=== PATIENT | female | born 1960 | race Caucasian/White ===

== ENCOUNTER 2019-02-25 07:29 | Outpatient (CLI) | payer OTHER ==
[2019-02-25] MEDS ORDERED: Iopamidol 370 76% 100 ML VIAL ONE (09:00)
--- NOTE | 2019-02-25 12:09 | CT ---
EXAM: CT Abdomen W WO Con DATE: 02/25/2019 12:00 AM INDICATION: Left adrenal lesion found on MR of the lumbar spine dated March 08, 2017 COMPARISON: MR the lumbar spine with and without contrast dated March 18, 2017 FINDING: There is a 1.9 cm hypodense, partially calcified nodule involving the lateral limb of the l eft adrenal gland. This is slightly smaller than seen on the comparison MR examination dated 03/08/2017. The lesion is seen on the comparison CT the lumbar spine from [facility] 07/14/2015 and is also smaller to this comparison study. The lesion demonstrates on precontrast images a [place] internal characteristics outside of the calcification of 7.75. The lesion does mi ldly enhance. There is a 9 mm adrenal adenoma involving the right adrenal body. There are mild vascular calcifications involving the abdominal aorta. No enlarged lymph nodes are evident. Lung bases are clear. There is scattered degenerative and osteoa rthritic change present. IMPRESSION:The lesion within the left adrenal gland is consistent with a benign left adrenal adenoma. This lesion is slightly smaller than seen on the comparison CT of the lumbar spine dated July 14, 2015. There are small calcifications within the left adrenal adenoma likely dystrophic in nature. There is a small right adrenal adenoma incidentally noted measuring 9 mm.
== END 2019-02-25 07:30 | disposition home or self-care (01) ==
LOC: SCSCT 07:29
PROVIDERS: ATTEND Family Medicine
DX: D35.02 Benign neoplasm of left adrenal gland (principal)
CPT/HCPCS: 74170; Q9967

== ENCOUNTER 2019-03-27 07:09 | Day surgery (SDC) | payer OTHER ==
[2019-03-26 17:15] VITALS: BMI 47.5
[2019-03-27] MEDS ORDERED: Midazolam HCl 2 mg/2 ml Vial ONE (09:05)
[2019-03-27] MEDS ORDERED: Ketamine 50 MG/ML (10ML VIAL) ONE (09:11)
--- NOTE | 2019-03-27 12:36 | OP ---
DATE OF PROCEDURE: 03/27/2019 PREOPERATIVE DIAGNOSES: 1. Nausea and weight loss. 2. Intermittent diarrhea. 3. Family history of colorectal cancer in her brother. POSTOPERATIVE DIAGNOSES: 1. Esophagogastroduodenoscopy notable for normal esophagus. Mild antral gastritis with erosion, biopsied. 2. Normal duodenum in third portion. Biopsies taken to rule out celiac. 3. Colonoscopy, tortuous, difficult exam. Ileocecal valve was seen. Cecal pull was not reached despite 1 hour procedure. 4. A 5 mm polyp, hepatic flexure, removed by snare polypectomy, submitted to pathology. No other lesion seen. RECOMMENDATIONS: 1. Prilosec 40 mg p.o. q.a.m. 2. Citrucel Fiber daily. 3. Repeat colonoscopy in 1 year. 4. Follow up in my office in 2 weeks. PROCEDURE IN DETAIL: The patient was informed of the risks, benefits, and possible complications of endoscopy including perforation, reaction to medication, aspiration, and informed consent was obtained. The patient was brought to the endoscopy suite, where she was sedated in gradual fashion. The endoscope was advanced through the bite block, which was inside the orifice. The endoscope was advanced through the esophagus, stomach, and the second and third portions of the duodenum. The esophagus was normal. The stomach was notable for mild antral nodular gastritis with a small erosion versus pancreatic rest. Biopsies were obtained and submitted to Pathology. The retroflexed views in the stomach were normal with no evidence of ulcers, erosions, or other gastritis. The GE junction was normal from above and below. The scope was moved into the duodenum and second and third portions with no overt lesion seen. There was mild duodenitis in the bulb. There were no other lesions. There was no evidence of celiac, but random biopsies were obtained with regard to her chronic diarrhea. The scope was removed. The patient tolerated the procedure well. She was returned to the room and rectal examination was performed, which was normal. The endoscope was advanced to the colon. The exam was very tortuous. Her body habitus made it very difficult to get pressure and mobilize from the bed for movement to try to reach the cecum. After an hour, we were still unable to reach the cecal polyp, but we were able to see the cusp of the appendiceal orifice just beyond the ileocecal valve, but not seen completely behind it. The prep was good. One polyp was seen at the hepatic flexure, 5 mm, removed by cold snare polypectomy. The scope was then slowly removed with visualization of the colon as best as we could. Otherwise, retroflexed views in the rectum were normal. There was no evidence of colitis. There were no other masses or lesions. No other polyps were seen. The scope was removed. The patient tolerated procedure well. There were no complications. Job ID: [id number]
[2019-03-27] MEDS ORDERED: PROPOFOL 200 MG/20 ML VIAL ONE (14:17)
== END 2019-03-27 11:48 | disposition home or self-care (01) ==
LOC: SDC 07:09
PROVIDERS: ATTEND Internal Medicine Gastroenterology
PROC: 0DBL8ZX Excision of Transverse Colon, Via Natural or Artificial Opening Endoscopic, Diagnostic (ICD-10-PCS; principal; 2019-03-27)
PROC: 0DB78ZX Excision of Stomach, Pylorus, Via Natural or Artificial Opening Endoscopic, Diagnostic (ICD-10-PCS; principal; 2019-03-27)
DX: D12.3 Benign neoplasm of transverse colon (principal); K29.50 Unspecified chronic gastritis without bleeding; B96.81 Helicobacter pylori [H. pylori] as the cause of diseases classified elsewhere; Q43.8 Other specified congenital malformations of intestine; J45.909 Unspecified asthma, uncomplicated; F32.9 Major depressive disorder, single episode, unspecified; K58.0 Irritable bowel syndrome with diarrhea; Z80.0 Family history of malignant neoplasm of digestive organs; Z88.6 Allergy status to analgesic agent; Z87.891 Personal history of nicotine dependence; Z88.5 Allergy status to narcotic agent; Z79.899 Other long term (current) drug therapy
CPT/HCPCS: 88305; 88312; J2250; J2704

== ENCOUNTER 2019-06-05 10:53 | Outpatient (CLI) | payer OTHER ==
--- NOTE | 2019-06-05 13:29 | RAD ---
XR Lumbar Spine 2 Or 3 View History: Back pain Comparison: MRI 2017 Findings: Exam is limited due to motion. No definite acute fracture or malalignment. 2 mm L4 over L5 retrolisthesis without significant translation with flexion or extension. Low-grade posterior L5/S1 disc space narrowing. Surgical disc hardware at L4/L5. Impression: Mild degenerative changes. No significant translation with flexion or extension.
== END 2019-06-05 10:54 | disposition home or self-care (01) ==
LOC: SCSRAD 10:53
PROVIDERS: ATTEND Nurse Practitioner Family
DX: M47.26 Other spondylosis with radiculopathy, lumbar region (principal)
CPT/HCPCS: 72100

== ENCOUNTER 2019-07-17 15:24 | Outpatient (CLI) | payer OTHER ==
--- NOTE | 2019-07-17 16:18 | MRI ---
MRI lumbar spine noncontrast HISTORY: Low back pain with right leg radiculopathy. FINDINGS: Vertebral body heights and alignment are maintained. Mild posterior disc bulge is apparent at the T11-12 level without significant compromise of the central canal or neural foramina. Conus medullaris has normal appearance. There is desiccation of the intervertebral discs at the L2-3, L3-4, and L4-5 levels. T12-L1, L1-2, L2-3, L3-4: Osteophytosis of the facets. Central canal and neural foramina are patent. L4-5: Disc space narrowing and minimal degenerative retrolisthesis. Discogenic endplate changes withi n the bone marrow or most pronounced at this level. There is osteophytosis of the facets. Central canal is patent. Mild stenosis of each neural foramen. L5-S1: Bone marrow signal abnormality from prior pedicle screws evident. There is far left lateral pr otrusion of the intervertebral disc that approaches the right nerve root within the lateral aspect of the neural foramen. Large amount of fat is present posteriorly, however, giving a large cushion fo r the nerve root. There is osteophytosis of the facets. Mild stenosis of the right neural foramen. IMPRESSION: Far right lateral disc protrusion at the lumbosacral junction, encroaching upon the right L5 nerve root but not significantly compressing it due to the surrounding cushion of fat. Otherwise mild degenerative changes and postoperative changes of the lumbar spine.
== END 2019-07-17 15:25 | disposition home or self-care (01) ==
LOC: TBSIIMAG 15:24
PROVIDERS: ATTEND Nurse Practitioner Family
DX: M47.26 Other spondylosis with radiculopathy, lumbar region (principal); M51.27 Other intervertebral disc displacement, lumbosacral region; Z98.890 Other specified postprocedural states
CPT/HCPCS: 72148

== ENCOUNTER 2020-09-15 13:36 | Outpatient (CLI) | payer OTHER ==
[2020-09-15] MEDS ORDERED: Magnevist 469MG/ML 20 ML VIAL ONE (14:49)
--- NOTE | 2020-09-15 15:06 | RAD ---
XR Lumbar Spine 2 Or 3 View History: Lumbar radiculopathy Comparison: MRI same day Findings: Prior discectomy change at L4/L5. No significant listhesis. No abnormal translation with fl exion or extension. No acute fracture or malalignment. Impression: No significant translation with flexion or extension.
--- NOTE | 2020-09-15 15:25 | MRI ---
MRI lumbar spine with and without IV contrast INDICATIONS: Lumbar radiculopathy COMPARISON:MRI lumbar spine dated 07/17/2019 FINDINGS: Lumbar vertebral maintain height and alignment. Degenerative spurring from the lumbar vertebra. Degen erative endplate changes, prominent at L4-5 and L2-3, stable from prior exam Signal changes within the L2-3 disc and the L4-5 disc consistent with postoperative change. Loss of d isc space at both of these levels. T12-L1:No significant disc bulge or protrusion. No central canal or foraminal stenosis. L1-2:No significant disc bulge or protrusion. No central canal or foraminal stenosis. L2-3:Postoperative changes. No evidence of significant residual central disc. Disc osteophyte complex projects paracentrally on the left and laterally on the left appear to contact the exiting left L2 nerve root. No significant central canal stenosis L3-4:No significant disc bulge or protrusion. Facet hypertrophy. No significant central canal or fora juaquin stenosis. L4-5:Interbody disc implant. Prominent facet hypertrophy. No central disc bulge or protrusion. Mild c entral canal stenosis. Foraminal encroachment on both sides due to hypertrophic change. L5-S1:No significant disc bulge or protrusion. No central canal or foraminal stenosis. No soft tissue abnormality identified. IMPRESSION: 1.Postoperative and degenerative changes at the L2-3 and L4-5 disc spaces. Left foraminal encroachmen t at L4-3 as described. Bilateral foraminal encroachment at L4-5.
== END 2020-09-15 13:37 | disposition home or self-care (01) ==
LOC: TBSIIMAG 13:36
PROVIDERS: ATTEND Neurological Surgery
DX: M47.26 Other spondylosis with radiculopathy, lumbar region (principal); Z98.890 Other specified postprocedural states
CPT/HCPCS: 72100; 72158; 82565; A9579

== ENCOUNTER 2021-01-05 09:42 | Outpatient (CLI) | payer OTHER | END 2021-01-05 09:43 | disposition home or self-care (01) | LOC: DTY/OP 09:42 | PROVIDERS: ATTEND Surgery | DX: E66.01 Morbid (severe) obesity due to excess calories (principal) | CPT/HCPCS: 97802 ==

== ENCOUNTER 2021-03-24 09:22 | Outpatient (CLI) | payer OTHER ==
[2021-03-24 10:19] LABS: #Basophils 0.1 10x3/uL (0.0-0.2); #Eosinphils 0.4 10x3/uL (0.0-0.5); #Monocytes 0.7 10x3/uL (0.0-1.1); #Neutrophils 4.8 10x3/uL (1.5-8.4); %Basophils 0.7 % (0.0-2.0); %Eosinophils 4.7 % (0.0-6.0); %Lymphocytes 30.8 % (18.0-47.0); %Monocytes 7.7 % (0.0-10.0); %Neutrophils 55.8 % (40.0-75.0); Hemoglobin 15.4 g/dL (12.0-15.5); Mean Corpuscular HGB CONC 33.1 g/dL (32.0-36.0); Mean Corpuscular Hemoglobin 28.5 pg (27.0-33.0); Platelet Count 258 10x3/uL (150-450); RBC Distribution Width 13.2 % (11.5-14.5); Red Blood Cell (RBC) Count 5.41 10x6/uL (3.90-5.03); White Blood Cell (WBC) Count 8.6 10x3/uL (3.5-10.5)
[2021-03-24 10:39] LABS: ALT (SGPT) 47 U/L (8-55); AST (SGOT) 41 U/L (5-34); Albumin 4.2 g/dL (3.4-4.8); Alkaline Phosphatase 51 U/L (40-110); Anion Gap 14 mmol/L (10-20); BUN (Urea Nitrogen) 18 mg/dL (9.8-20.1); Bilirubin, Total 0.6 mg/dL (0.2-1.2); Calc. Creatinine Clearance 0 mL/min (70-130); Calcium 10.4 mg/dL (7.8-10.44); Carbon Dioxide 22 mmol/L (23-31); Chloride 109 mmol/L (98-107); Globulin 2.8 g/dL (2.4-3.5); Glucose 110 mg/dL (80-115); Potassium 4.3 mmol/L (3.5-5.1); Sodium 141 mmol/L (136-145)
[2021-03-24 14:55] LABS: Hemoglobin A1c 5.6 % (4.0-6.0)
== END 2021-03-24 09:23 | disposition home or self-care (01) ==
LOC: LABBT 09:22
PROVIDERS: ATTEND Surgery
DX: Z01.818 Encounter for other preprocedural examination (principal); E66.01 Morbid (severe) obesity due to excess calories
CPT/HCPCS: 71046; 80053; 83036; 85025

== ENCOUNTER 2021-03-29 07:16 | Outpatient (CLI) | payer OTHER ==
[2021-03-30 01:46] LABS: SARS-CoV-2 PCR by NAA Not Detected (NotDetected)
== END 2021-03-29 07:17 | disposition home or self-care (01) ==
LOC: LABBT 07:16
PROVIDERS: ATTEND Surgery
DX: Z01.812 Encounter for preprocedural laboratory examination (principal); Z20.822 Contact with and (suspected) exposure to COVID-19
CPT/HCPCS: U0003; U0005

== ENCOUNTER 2021-05-26 08:15 | Inpatient (IN) | payer OTHER ==
[2021-05-31] MEDS ORDERED: ceFAZolin 2 GM/DEX 5% 100 ML BAG ONE (07:50)
[2021-05-31] MEDS ORDERED: Heparin 5,000 UNITS/ML VIAL ONE (07:51)
[2021-05-31] MEDS ORDERED: Lidocaine 1% w/Epinephrine 1:100K 20 ML VIAL ONE (08:12)
[2021-05-31] MEDS ORDERED: Bupivacaine 0.25% HCL 30 ML VIAL ONE (08:12)
[2021-05-31] MEDS ORDERED: Fentanyl 100 MCG/2 ML VIAL ONE ×2 (08:52→11:04)
[2021-05-31] MEDS ORDERED: SUGAMMADEX SODIUM 200 MG/2 ML VIAL ONE (08:52)
[2021-05-31] MEDS ORDERED: Rocuronium Bromide 10 MG/ML (10ML VIAL) ONE (09:15)
[2021-05-31] MEDS ORDERED: Ondansetron PF 4 MG/2 ML Vial ONE (09:15)
[2021-05-31] MEDS ORDERED: PROPOFOL 200 MG/20 ML VIAL ONE (09:15)
[2021-05-31] MEDS ORDERED: ePHEDrine 50 MG/ML VIAL ONE (09:15)
[2021-05-31] MEDS ORDERED: Ketorolac Tromethamine 30 MG/ML VIAL ONE (09:15)
[2021-05-31] MEDS ORDERED: Glycopyrrolate 0.2 MG/ML 5 ML SYRINGE ONE (09:15)
[2021-05-31] MEDS ORDERED: Dexamethasone 20 MG/5 ML VIAL ONE (09:15)
[2021-05-31] MEDS ORDERED: Lidocaine 1% PF 5 ML VIAL ONE (09:15)
[2021-05-31] MEDS ORDERED: Promethazine HCl 25 MG/ML VIAL IVPB PRN (10:50)
[2021-05-31] MEDS ORDERED: Promethazine HCl 25 MG/ML VIAL IM PRN ×4 (10:50→14:51)
[2021-05-31] MEDS ORDERED: Ondansetron HCl/PF 4 MG/2 ML Vial IVP PRN (10:50)
[2021-05-31] MEDS ORDERED: Promethazine HCl 25 MG/ML VIAL ONE (11:49)
[2021-05-31] MEDS ORDERED: Dextrose 50% Abboject 50 ML SYRINGE SLOW IVP PRN (11:57)
[2021-05-31] MEDS ORDERED: Ondansetron PF 4 MG/2 ML Vial IVP PRN ×3 (11:57→14:51)
[2021-05-31] MEDS ORDERED: Dextrose 5% in Water 1,000 ML IV PRN (11:57)
[2021-05-31] MEDS ORDERED: Hydrocodone-Acetamin 15 ML UDCUP PO PRN (11:57)
[2021-05-31] MEDS ORDERED: hydrALAZINE 20 MG/ML VIAL SLOW IVP PRN (11:57)
[2021-05-31] MEDS ORDERED: diphenhydrAMINE 50 MG/ML VIAL IVP PRN ×3 (11:57→14:51)
[2021-05-31 13:58] VITALS: BMI 48.8
[2021-05-31] MEDS ORDERED: Zolpidem Tartrate 5 MG TAB PO PRN ×2 (14:47→14:51)
[2021-05-31] MEDS ORDERED: Naloxone HCl 0.4 mg/ml Vial IV PRN ×2 (14:47→14:51)
[2021-05-31] MEDS ORDERED: diphenhydrAMINE 50 MG/ML VIAL IM PRN ×2 (14:47→14:51)
[2021-05-31] MEDS ORDERED: diphenhydrAMINE 25 MG CAP PO PRN ×2 (14:47→14:51)
[2021-05-31] MEDS ORDERED: fentaNYL Citrate/PF 2,000 MCG in Sodium Chloride 0.9% 60 ML IV PRN (14:47)
[2021-05-31] MEDS ORDERED: Ketorolac Tromethamine 30 MG/ML VIAL IVP PRN (14:51)
[2021-05-31] MEDS ORDERED: Communication Order-Pharmacy FS SCH ×2 (15:00)
[2021-05-31] MEDS: D5 1/2 NS w/20 mEq KCL 1,000 ML IV SCH ×2 (16:21→20:34)
[2021-05-31] MEDS ORDERED: Enoxaparin Sodium 40 MG/0.4 ML SYRINGE SC SCH (21:00)
[2021-06-01] MEDS: D5 1/2 NS w/20 mEq KCL 1,000 ML IV SCH ×2 (05:10→11:20)
[2021-06-01] MEDS ORDERED: Hydrocodone-Acetamin 15 ML UDCUP PO PRN (05:30)
[2021-06-01 06:41] LABS: #Eosinphils 0.1 thou/uL (0.0-0.7); #Lymphocytes 2.3 thou/uL (1.20-3.40); #Monocytes 0.8 thou/uL (0.11-0.59); #Neutrophils 8.4 thou/uL (1.40-6.50); %Basophils 0.2 % (0.0-1.0); %Eosinophils 0.6 % (0.0-10.0); %Lymphocytes 19.9 % (21.0-51.0); %Monocytes 7.2 % (0.0-10.0); %Neutrophils 72.1 % (42.0-75.0); Hemoglobin 15.2 g/dL (12.0-16.0); Mean Corpuscular HGB CONC 33.3 g/dL (32.0-36.0); Mean Corpuscular Hemoglobin 30.4 pg (27.0-31.0); Mean Corpuscular Volume 91.2 fL (78.0-98.0); Mean Platelet Volume 8.5 fL (7.4-10.4); Platelet Count 190 thou/uL (130-400); Red Blood Cell (RBC) Count 4.99 mill/uL (4.20-5.40); White Blood Cell (WBC) Count 11.6 thou/uL (4.8-10.8)
[2021-06-01 06:54] LABS: Anion Gap 19 mmol/L (10-20); BUN (Urea Nitrogen) 9 mg/dL (9.8-20.1); Calc. Creatinine Clearance 189 mL/min (70-130); Calcium 9.3 mg/dL (7.8-10.44); Carbon Dioxide 16 mmol/L (23-31); Chloride 108 mmol/L (98-107); Glucose 92 mg/dL (80-115); Potassium 4.8 mmol/L (3.5-5.1); Sodium 138 mmol/L (136-145)
[2021-06-01 08:08] VITALS: BP 92/60; TEMP 98.2
[2021-06-01] MEDS ORDERED: Pantoprazole 40 MG VIAL IVP SCH (09:00)
== END 2021-06-01 11:40 | disposition home or self-care (01) | DRG 621 ==
LOC: SURG A 05-31 06:44 → EDSTATUS 05-31 08:15 → SURG A 05-31 17:15
PROVIDERS: ADMIT Surgery; ATTEND Surgery
PROC: 0DB64Z3 Excision of Stomach, Percutaneous Endoscopic Approach, Vertical (ICD-10-PCS; principal; 2021-05-31)
PROC: 8E0W4CZ Robotic Assisted Procedure of Trunk Region, Percutaneous Endoscopic Approach (ICD-10-PCS; 2021-05-31)
DX: E66.01 Morbid (severe) obesity due to excess calories (principal); Z68.42 Body mass index [BMI] 45.0-49.9, adult; E03.9 Hypothyroidism, unspecified; J45.909 Unspecified asthma, uncomplicated; M19.90 Unspecified osteoarthritis, unspecified site; Z90.710 Acquired absence of both cervix and uterus; Z88.8 Allergy status to other drugs, medicaments and biological substances; Z88.2 Allergy status to sulfonamides
CPT/HCPCS: 36415; 80048; 85025; 88307; 88341; 88342; 88360; J1100; J1644; J1650; J1885; J2405; J2550; J2704; J3010; J3480; J3490; S0020

== ENCOUNTER 2021-05-26 08:30 | Outpatient (CLI) | payer SELFPAY ==
[2021-05-26 17:30] LABS: SARS-CoV-2 PCR by NAA Not Detected (NotDetected)
== END 2021-05-26 08:31 | disposition home or self-care (01) ==
LOC: LABBT 08:30
PROVIDERS: ATTEND Surgery
DX: Z01.812 Encounter for preprocedural laboratory examination (principal); E66.01 Morbid (severe) obesity due to excess calories; Z20.822 Contact with and (suspected) exposure to COVID-19
CPT/HCPCS: U0003; U0005